=== PATIENT | female | born 2005 | race Caucasian/White ===

== ENCOUNTER 2025-02-16 09:35 | Emergency (ER) | payer MEDICAID ==
[~2025-02-16] VITALS: Ht 165.1 cm; Wt 68.0 kg
[2025-02-16 09:39] VITALS: BP 108/60; PULSE 64; RESP 18; TEMP 37.2; O2SAT 100
[2025-02-16] MEDS ORDERED: AMOX1TAB16 MT (10:15)
[2025-02-16] MEDS: ACETAMINOPHEN 325MG TABLET PO ONE (10:25)
== END 2025-02-16 11:18 | disposition home or self-care (01) ==
LOC: ER 09:35
DX: S09.90XA Unspecified injury of head, initial encounter (principal); M54.2 Cervicalgia; F31.9 Bipolar disorder, unspecified; Z79.899 Other long term (current) drug therapy; Y04.1XXA Assault by human bite, initial encounter; Y93.89 Activity, other specified; Y92.89 Other specified places as the place of occurrence of the external cause; Y99.8 Other external cause status
CPT/HCPCS: 70486; 81025; 99291